=== PATIENT | female | born 1940 | race Caucasian/White ===

== ENCOUNTER → 2016-09-01 | Outpatient (REF) | payer MEDICARE, MEDICAID ==
[~2016-09-01] MED LIST: ALDA25TA2 PO; ALDA50TA2 PO; AMLO10TA2 PO; ARTIFICIAL TEARS OU; ASPI81TA85 PO; DOCU10CA PO; LISI40TAB PO; MESA4KIT PR; MESA50SU PR; MOM30SS PO; NORV5TAB PO; PAME50CA PO; PRAV40TA2 PO; REFROIN OU; ROBISYP PO; SYST0.4D2 OU; TYLE325T5 PO
[2016-09-01 12:45] LABS: POTASSIUM SERUM 3.8 MEQ/L (3.5-5.1)
== END ==
DX: I10 Essential (primary) hypertension (principal)

== ENCOUNTER → 2016-11-09 | Outpatient (REF) | payer MEDICARE, MEDICAID ==
[2016-11-09 09:51] LABS: CALCIUM LEVEL 9.9 MG/DL (8.8-10.2); CREATININE FOR GFR 1.02 MG/DL (0.55-1.02); GLOMERULAR FILTRATION RATE 56.4 (>39); PHOSPHORUS LEVEL 3.2 MG/DL (2.5-4.9); POTASSIUM SERUM 3.6 MEQ/L (3.5-5.1)
== END ==
DX: E83.52 Hypercalcemia (principal)

== ENCOUNTER → 2017-02-01 | Outpatient (REF) | payer MEDICARE, MEDICAID ==
[2017-02-01 10:45] LABS: MEAN CORPUSCULAR HEMOGLOBIN 33.9 pg (27.0-33.0); MEAN CORPUSCULAR VOLUME 99.8 fl (80.0-96.0); RED CELL DISTRIBUTION WIDTH 13.2 % (11.5-14.5); WHITE BLOOD COUNT 5.4 K/mm3 (4.0-10.0)
[2017-02-01 11:12] LABS: ALBUMIN 3.9 GM/DL (3.2-5.2); ALBUMIN/GLOBULIN RATIO 1.03 (1.00-1.93); ALKALINE PHOSPHATASE 48 U/L (45-117); ALT/SGPT 16 U/L (12-78); AST/SGOT 11 U/L (15-37); BILIRUBIN,DIRECT < 0.1 MG/DL (0.0-0.2); BILIRUBIN,TOTAL 0.4 MG/DL (0.2-1.0); TOTAL PROTEIN 7.7 GM/DL (6.4-8.2)
== END ==
DX: E78.5 Hyperlipidemia, unspecified (principal)

== ENCOUNTER → 2017-04-04 | Outpatient (REF) | payer MEDICARE, MEDICAID ==
--- NOTE | 2017-04-04 16:54 | REP ---
Right ankle series: Two views: History: Right ankle pain. Findings: Two views right ankle demonstrate diffuse soft tissue swelling distal calf and ankle level. Ankle mortise is intact on these views. There is some diffuse osteopenia. Impression: No fracture noted. Signed by Saroj Traore MD 04/04/2017 05:01 P
== END ==
DX: M25.571 Pain in right ankle and joints of right foot (principal)

== ENCOUNTER → 2017-07-28 | Outpatient (CLI) | payer MEDICARE, MEDICAID ==
--- NOTE | 2017-07-28 15:23 | REP ---
BILATERAL DIGITAL SCREENING MAMMOGRAM: 07/28/2017 CLINICAL HISTORY: Screening examination. She has no current complaints. On a prior history form in 2010, she stated her mother had breast cancer in her 40s although her current history form does not include that. COMPARISON: 01/10/2014, 04/10/2012, 03/29/2011. FINDINGS: Standard two-view mammography is performed. The breast parenchyma shows scattered fibroglandular elements in a pattern distribution similar to the previous studies. However, there is now some interval change in that there are multiple coarse benign calcifications having formed since that previous study of 2013 when there were only a few. In addition, slight skin thickening is noted anteriorly. I do not see discrete mass, architectural distortion, suspicious clusters of microcalcification or evidence of any secondary signs of malignancy elsewhere. The right breast remains unremarkable. There is a GRE TUTOR shunt tubing seen coursing along the medial aspect of the chest wall and breast with calcification along its course as before. I see no axillary mass or adenopathy. IMPRESSION: BI-RADS/ACR category 0 mammogram, incomplete. Additional imaging and/or prior mammograms for comparison. I would have the patient return for spot magnified views of the retroareolar zone and axillary ultrasound in a patient with interval left breast mild skin thickening. No discrete mass identified. The possibility of axillary adenopathy as a cause for skin edema should be considered and evaluated with ultrasound and evaluation of the parenchyma in the retroareolar zone is warranted as well. This mammogram was interpreted with the aid of an FDA-approved computer-aided detection system. The patient states that she/he has not had a clinical breast exam in over a year. Patient letter M0. Signed by Tucker Jean Baptiste MD 07/28/2017 08:42 P
== END ==
LOC: M RAD 10:48
PROVIDERS: ATTEND Nurse Practitioner Adult Health
DX: Z12.31 Encounter for screening mammogram for malignant neoplasm of breast (principal); Z80.3 Family history of malignant neoplasm of breast; R92.1 Mammographic calcification found on diagnostic imaging of breast

== ENCOUNTER → 2017-08-05 | Outpatient (CLI) | payer MEDICARE, MEDICAID ==
--- NOTE | 2017-08-05 15:17 | REP ---
DIAGNOSTIC MAMMOGRAM LEFT BREAST AND LEFT BREAST ULTRASOUND: Diagnostic mammogram left breast performed with multiple compression views obtained. Comparison made with prior study of 07/28/2017 as well as other prior exams. The previously noted skin thickening around the nipple is not seen on today's exam. Retroareolar region demonstrates mild ill-defined fibroglandular tissue which appears benign, as well as scattered benign calcifications. No nodule is seen and there is no architectural distortion. Real-time sonographic evaluation of the left retroareolar region is performed. There are mildly dilated ducts in the retroareolar region without a cystic or solid mass. Real-time sonographic evaluation of the axillary region also demonstrates no suspicious cystic or solid mass and no evidence of significant adenopathy. IMPRESSION: ACR 2 benign. No persistent skin thickening in the periareolar region of the left breast. No suspicious mammographic or sonographic abnormality in the retroareolar region and no evidence of mass or adenopathy in the left axilla. The findings are ACR 2 benign. Recommend followup mammogram in one year. BI-RADS/ACR category 2 mammogram. Benign finding(s). Routine annual screening mammography (for women over age 40). This mammogram was interpreted with the aid of an FDA-approved computer-aided detection system. The patient letter being requested is M1 Signed by Gary Pitts MD 08/05/2017 05:01 P
== END ==
LOC: M RAD 10:38
PROVIDERS: ATTEND Nurse Practitioner Adult Health
DX: R92.8 Other abnormal and inconclusive findings on diagnostic imaging of breast (principal)
CPT/HCPCS: 76642; G0206

== ENCOUNTER → 2017-09-15 | Outpatient (REF) | payer MEDICARE, MEDICAID ==
[2017-09-15 14:05] LABS: HEMATOCRIT 44.3 % (36.0-47.0); HEMOGLOBIN 14.5 g/dl (12.0-16.0); MEAN CORPUSCULAR HEMOGLOBIN 31.4 pg (27.0-33.0); MEAN CORPUSCULAR HGB CONC 32.7 g/dl (32.0-36.5); MEAN CORPUSCULAR VOLUME 95.9 fl (80.0-96.0); PLATELET COUNT, AUTOMATED 185 10^3/uL (150-450); RED BLOOD COUNT 4.62 10^6/uL (4.00-5.40); RED CELL DISTRIBUTION WIDTH 13.9 % (11.5-14.5); WHITE BLOOD COUNT 6.3 10^3/uL (4.0-10.0)
[2017-09-15 14:37] LABS: INFLUENZA A AMPLIFICATION NEGATIVE (NEGATIVE); INFLUENZA B AMPLIFICATION NEGATIVE (NEGATIVE)
== END ==
DX: R50.9 Fever, unspecified (principal); R05 Cough
CPT/HCPCS: 85027

== ENCOUNTER → 2018-01-31 | Outpatient (REF) | payer MEDICARE, MEDICAID ==
[2018-01-31 09:44] LABS: HEMATOCRIT 48.1 % (36.0-47.0); MEAN CORPUSCULAR HEMOGLOBIN 29.6 pg (27.0-33.0); MEAN CORPUSCULAR HGB CONC 31.2 g/dl (32.0-36.5); MEAN CORPUSCULAR VOLUME 94.9 fl (80.0-96.0); PLATELET COUNT, AUTOMATED 191 10^3/uL (150-450); RED BLOOD COUNT 5.07 10^6/uL (4.00-5.40); RED CELL DISTRIBUTION WIDTH 14.4 % (11.5-14.5); WHITE BLOOD COUNT 5.4 10^3/uL (4.0-10.0)
[2018-01-31 10:11] LABS: ALBUMIN 4.2 GM/DL (3.2-5.2); ALBUMIN/GLOBULIN RATIO 0.98 (1.00-1.93); ALKALINE PHOSPHATASE 68 U/L (45-117); ALT/SGPT 21 U/L (12-78); AST/SGOT 14 U/L (7-37); BILIRUBIN,DIRECT 0.1 MG/DL (0.0-0.2); BILIRUBIN,TOTAL 0.4 MG/DL (0.2-1.0); TOTAL PROTEIN 8.5 GM/DL (6.4-8.2)
[2018-01-31 10:15] LABS: TOTAL 25(OH) VITAMIN D 52.4 NG/ML (30.0-100.0)
== END ==
DX: E78.5 Hyperlipidemia, unspecified (principal)
CPT/HCPCS: 80076

== ENCOUNTER → 2018-05-15 | Outpatient (REF) | payer MEDICARE, MEDICAID ==
[2018-05-15 12:40] LABS: HEMOGLOBIN 14.2 g/dl (12.0-15.5); MEAN CORPUSCULAR HEMOGLOBIN 28.1 pg (27.0-33.0); MEAN CORPUSCULAR HGB CONC 30.2 g/dl (32.0-36.5); MEAN CORPUSCULAR VOLUME 92.9 fl (80.0-96.0); PLATELET COUNT, AUTOMATED 202 10^3/uL (150-450); RED BLOOD COUNT 5.06 10^6/uL (4.00-5.40); RED CELL DISTRIBUTION WIDTH 14.6 % (11.5-14.5); WHITE BLOOD COUNT 5.1 10^3/uL (4.0-10.0)
[2018-05-15 12:55] LABS: ANION GAP 8 MEQ/L (8-16); BLOOD UREA NITROGEN 13 MG/DL (7-18); CALCIUM LEVEL 9.2 MG/DL (8.8-10.2); CARBON DIOXIDE LEVEL 35 MEQ/L (21-32); CHLORIDE LEVEL 100 MEQ/L (98-107); CREATININE FOR GFR 0.74 MG/DL (0.55-1.30); GLOMERULAR FILTRATION RATE > 60.0 (>39); GLUCOSE, FASTING 86 MG/DL (70-100); POTASSIUM SERUM 3.6 MEQ/L (3.5-5.1); SODIUM LEVEL 143 MEQ/L (136-145)
== END ==
DX: N18.4 Chronic kidney disease, stage 4 (severe) (principal)
CPT/HCPCS: 80048

== ENCOUNTER → 2018-08-29 | Outpatient (REF) | payer MEDICARE, MEDICAID ==
[~2018-08-29] MED LIST changes: -AMLO10TA2 PO; +AMLO10TA5 PO
[2018-08-29 10:33] LABS: ALBUMIN 3.6 GM/DL (3.2-5.2); ALT/SGPT 18 U/L (12-78); BILIRUBIN,DIRECT 0.1 MG/DL (0.0-0.2); BILIRUBIN,TOTAL 0.3 MG/DL (0.2-1.0); BLOOD UREA NITROGEN 10 MG/DL (7-18); CARBON DIOXIDE LEVEL 33 MEQ/L (21-32); CHLORIDE LEVEL 100 MEQ/L (98-107); CREATININE FOR GFR 0.78 MG/DL (0.55-1.30); GLOMERULAR FILTRATION RATE > 60.0 (>39); GLUCOSE, FASTING 151 MG/DL (70-100); POTASSIUM SERUM 3.9 MEQ/L (3.5-5.1); SODIUM LEVEL 141 MEQ/L (136-145); TOTAL 25(OH) VITAMIN D 67.2 NG/ML (30.0-100.0); TOTAL PROTEIN 7.3 GM/DL (6.4-8.2)
== END ==
DX: I10 Essential (primary) hypertension (principal)

== ENCOUNTER → 2019-01-30 | Outpatient (REF) | payer MEDICARE, MEDICAID ==
[~2019-01-30] MED LIST changes: +LISI40TA52 PO; -LISI40TAB PO
[2019-01-30 09:44] LABS: HEMATOCRIT 47.1 % (36.0-47.0); HEMOGLOBIN 14.4 g/dl (12.0-15.5); MEAN CORPUSCULAR HEMOGLOBIN 27.6 pg (27.0-33.0); MEAN CORPUSCULAR HGB CONC 30.6 g/dl (32.0-36.5); MEAN CORPUSCULAR VOLUME 90.4 fl (80.0-96.0); PLATELET COUNT, AUTOMATED 166 10^3/uL (150-450); RED BLOOD COUNT 5.21 10^6/uL (4.00-5.40); WHITE BLOOD COUNT 6.7 10^3/uL (4.0-10.0)
== END ==
DX: E78.00 Pure hypercholesterolemia, unspecified (principal); Z79.899 Other long term (current) drug therapy

== ENCOUNTER → 2019-04-04 | Outpatient (REF) | payer MEDICARE, MEDICAID ==
--- NOTE | 2019-04-04 15:09 | REP ---
REASON FOR EXAM: Pain with weightbearing, no trauma. No priors. The bones are demineralized. The mortise is symmetric. There is no evidence of an acute fracture. Electronically Signed by Dandre Castañeda DO 04/05/2019 03:19 P
--- NOTE | 2019-04-04 15:14 | REP ---
REASON: Pain with weightbearing. PRIORS: None. The bones are demineralized. Minimal lucency is seen in the os calcis. This was not appreciated on the four view ankle series obtained at the same time. I suspect it represents artifact since the ankle series also images the os calcis. There is no definite acute fracture. IMPRESSION: The bones are demineralized. Electronically Signed by Dandre Castañeda DO 04/05/2019 03:19 P
== END ==
PROVIDERS: ATTEND Nurse Practitioner Adult Health
DX: M85.871 Other specified disorders of bone density and structure, right ankle and foot (principal); M25.571 Pain in right ankle and joints of right foot; M79.671 Pain in right foot

== ENCOUNTER 2019-08-26 07:33 | Observation (INO) | payer MEDICARE, MEDICAID ==
[~2019-08-26] VITALS: Ht 154.9 cm; Wt 68.9 kg
[2019-08-26 08:43] LABS: HEMATOCRIT 44.1 % (36.0-47.0); HEMOGLOBIN 12.8 g/dl (12.0-15.5); MEAN CORPUSCULAR HEMOGLOBIN 25.7 pg (27.0-33.0); MEAN CORPUSCULAR VOLUME 88.4 fl (80.0-96.0); PLATELET COUNT, AUTOMATED 237 10^3/uL (150-450); RED BLOOD COUNT 4.99 10^6/uL (4.00-5.40); WHITE BLOOD COUNT 7.3 10^3/uL (4.0-10.0)
--- NOTE | 2019-08-26 08:48 | REP ---
Portable chest x-ray: Single view. History: Hypoxia. Comparison chest x-ray: September 15, 2017. Findings: There is a moderate to severe thoracolumbar scoliosis. Right hemidiaphragm is quite elevated unchanged from the prior study. Heart size is difficult to gauge because of the scoliosis but appears unchanged. No acute infiltrate is appreciated. There is dystrophic calcification in a linear pattern superimposed on the left medial chest consistent with mineral deposition in the previously placed ventriculoperitoneal shunt catheter. This is unchanged. 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 Impression: Scoliosis and markedly elevated right hemidiaphragm. No acute infiltrate. Old BUNDLE SHAKER shunt related calcification. Electronically Signed by Saroj Traore MD 08/26/2019 08:39 A
[2019-08-26] MEDS ORDERED: MIRALAX *UNIT DOSE* 17GM PACKET PO SCH (09:00)
[2019-08-26 09:27] LABS: INR 1.1; PROTHROMBIN TIME 13.9 SECONDS (11.8-14.0)
[2019-08-26 09:28] LABS: PARTIAL THROMBOPLASTIN TIME 32.7 SECONDS (25.0-38.4)
[2019-08-26 09:42] LABS: BLOOD UREA NITROGEN 14 MG/DL (7-18); CALCIUM LEVEL 9.1 MG/DL (8.8-10.2); CARBON DIOXIDE LEVEL 33 MEQ/L (21-32); CHLORIDE LEVEL 104 MEQ/L (98-107); CREATININE FOR GFR 0.82 MG/DL (0.55-1.30); GLOMERULAR FILTRATION RATE > 60.0 (>39); GLUCOSE, FASTING 120 MG/DL (70-100); POTASSIUM SERUM 4.1 MEQ/L (3.5-5.1); SODIUM LEVEL 143 MEQ/L (136-145)
[2019-08-26] MEDS ORDERED: COLA100C5 PO (10:22)
[2019-08-26] MEDS ORDERED: CALCCAP4 PO (10:22)
[2019-08-26] MEDS ORDERED: SORB70SO36 PO (10:22)
[2019-08-26] MEDS ORDERED: SENN-23 PO (10:22)
[2019-08-26] MEDS ORDERED: NEXI40CA PO (10:22)
[2019-08-26] MEDS ORDERED: MIRA3350 PO (10:22)
[2019-08-26] MEDS ORDERED: VITA30004 PO (10:22)
[2019-08-26] MEDS ORDERED: ASPI81TA26 PO (10:22)
[2019-08-26] MEDS ORDERED: MILKSUS3 PO (10:22)
[2019-08-26] MEDS ORDERED: ATOR40TA75 PO (10:22)
[2019-08-26] MEDS ORDERED: TUMS500C PO (10:26)
[2019-08-26] MEDS ORDERED: ENEMENE PR (10:26)
[2019-08-26] MEDS ORDERED: BISA10SU27 PR (10:26)
[2019-08-26] MEDS ORDERED: ACET1TAB55 PO (10:26)
[2019-08-26] MEDS ORDERED: [UNRECOGNIZED DRUG - CODE] OD (10:26)
[2019-08-26] MEDS ORDERED: AMPICILLIN SOD/SULBACTAM SOD 3 GM in D5W MINI-BAG PLUS 100 ML IV ONE (10:45)
[2019-08-26] MEDS ORDERED: FLEET ENEMA PR PRN (11:30)
[2019-08-26] MEDS ORDERED: BISACODYL 10 MG SUPP PR PRN (11:30)
[2019-08-26] MEDS ORDERED: CALCIUM CARBONATE 500 MG CHEW U/D PO PRN (11:30)
[2019-08-26] MEDS ORDERED: ACETAMINOPHEN TAB 650MG DOSE (2X325MG) PO PRN (11:30)
[2019-08-26 13:32] VITALS: BP 106/75
--- NOTE | 2019-08-26 13:38 | HPEPDOC ---
General Date of Admission Aug 26, 2019 at 07:34 Date of Service: Aug 26, 2019 Chief Complaint The patient is a 78-year-old female Presented to the emergency room after experiencing significant nasal bleeding History of Present Illness Patient is a 78-year-old female with a PMHx of Ischemic and hemorrhagic CVA (First initially in 1992, second in 2010), HTN, DLP, Ulcerative proctitis, Chronic constipation, Behavioral issues / Depression. Patient was transferred from [facility] because of nasal epistaxis that was significant in nature. Upon arrival to emergency room, patient had nasal packing that was placed and pressure was increased. Patient was evaluated by ENT provider who had performed visualization of the upper pharynx. No further bleeding was noted. Hospitalist service was subsequently contacted for evaluation and treatment. I discussed with the patients past medical history and current condition. They are having a difficult time to express their history, given their prior stroke. Majority of the information has been collected from the medical record. Upon evaluation in the emergency room, patient was found to be hypoxic. I have described to the patient that she will require the use of a facemask for supplemental oxygen. However, she had a strongly refused this. Patient is aware of the risks and benefits of such a decision including but not limited to . I have also explained to the patient that we will repeat her hemoglobin this afternoon to determine if she requires any transfusions. Again, she has expressly refused any further interventions. Patient was again advised of risks and benefits; again she has strongly refused transfusions. Basic review of systems indicates that she does not express any headache, nausea, vomiting, chest pain, shortness of breath, palpitations, abdominal pain, constipation, diarrhea, or urinary discomfort. Patient has not experience any fevers or chills within the last 2 weeks. Patients most form has indicated comfort measures, DO NOT RESUSCITATE and DO NOT INTUBATE. Home Medications Scheduled Amlodipine Besylate (Norvasc) 5 Mg Tab, 5 MG PO DAILY, (Reported) Aspirin (Aspirin EC) 81 Mg Tablet.dr, 81 MG PO DAILY, (Reported) Atorvastatin Calcium (Atorvastatin Calcium) 40 Mg Tablet, 40 MG PO QHS, (Reported) Calcium Carbonate/Vitamin D3 (Calcium 600 + Vit D 400 Softgl) 1 Each Capsule, 1 CAP PO DAILY, (Reported) Cholecalciferol (Vitamin D3) (Vitamin D3) 3,000 Unit Tablet, 6,000 UNIT PO DAILY, (Reported) Docusate Sodium (Colace) 100 Mg Capsule, 200 MG PO BID, (Reported) Esomeprazole Magnesium (Nexium) 40 Mg Capsule.dr, 40 MG PO QAM, (Reported) Magnesium Hydroxide (Milk of Magnesia) 400 Mg/5 Ml Oral.susp, 2,400 MG PO QHS, (Reported) Mineral Oil/Petrolatum,White (Soothe Night Time Lub Eye Oint) 3.5 Gm Oint...g., 1 APLCT OD QHS, (Reported) APPLY 1/2 INCH RIBBON TO RIGHT EYE QHS Nortriptyline HCl (Pamelor) 50 Mg Cap, 100 MG PO QHS, (Reported) Polyethylene Glycol 3350 (Miralax) 119 Gm Powder, 17 GM PO Q2D, (Reported) dilute in 8 ounces of water or juice Propylene Glycol/Peg 400 (Systane Gel Eye Drops) 1 Rah Rah, 1 DROP OU BID, (Reported) Sennosides/Docusate Sodium (Senna-S Tablet) 1 Each Tablet, 1 TAB PO BID, (Reported) Sorbitol Solution (Sorbitol 70%) 1 Ml Solution, 30 ML PO Q2D, (Reported) Spironolactone (Aldactone) 25 Mg Tab, 25 MG PO DAILY, (Reported) Scheduled PRN Acetaminophen (Acetaminophen) 325 Mg Tablet, 650 MG PO Q4H PRN for PAIN / FEVER, (Reported) Bisacodyl (Bisacodyl) 10 Mg Supp.rect, 10 MG [place] DAILY PRN for CONSTIPATION, (Reported) Calcium Carbonate (Tums) 200 Mg Tab.chew, 500 MG PO Q4H PRN for ACID REFLUX, (Reported) Sodium Phosphate,[place]-Dibasic (Enema) 133 Ml Enema, 1 RAUL [place] DAILY PRN for CONSTIPATION, (Reported) Allergies Coded Allergies: Influenza Virus Vaccines (Verified Allergy, Unknown, 08/26/19) Sulfa (Sulfonamide Antibiotics) (Verified Allergy, Unknown, UNKNOWN, 08/26/19) Past Medical History Medical History Ischemic and hemorrhagic CVA (First initially in 1992, second in 2010), HTN, DLP, Ulcerative proctitis, Chronic constipation, Behavioral issues / Depression Surgical History Left distal clavicular fracture 2010 Colonoscopy 1998 Hysterectomy Family History - Reviewed and is currently noncontributory to the current hospitalization Social History - Denies the use of alcohol, tobacco or illicit drugs - Patient is a resident of [facility] Review of Systems Other systems 10 point review of systems complete, all negative otherwise stated in HPI Vital Signs - Vitals: BP 128/82, HR 101, RR 18, Sat 91%RA, Temp 97.2F - General: Lying in bed, No acute distress, Expressing self but difficult to understand, several areas of dry blood can be seen on her gown, AAOx3 - HEENT: PERRLA, patient has a left nasal packing in place, dry blood can be seen around the nares as well as her mouth - CVS: Tachycardia, +S1S2 - Lungs: Fair air entry bilaterally, No appreciable wheezing / rales / rhonchi - Abdomen: Soft, Non-distended, Non-tender - Extremities: No lower extremity edema, No calf tenderness - Neuro: No focal motor or sensory deficit - Skin: No visible rashes Laboratory Data Labs 24H Laboratory Tests 2 08/26/19 08:32: Nucleated Red Blood Cells % (auto) 0.0 08/26/19 08:59: Prothrombin Time 13.9, Prothromb Time International Ratio 1.10, Activated Partial Thromboplast Time 32.7, Anion Gap 6L, Glomerular Filtration Rate > 60.0, Calcium Level 9.1 CBC/BMP Laboratory Tests 08/26/19 08:32 08/26/19 08:59 Plan / VTE VTE Prophylaxis Ordered?: Yes Plan Plan Epistaxis - Patient began to experience epistaxis while at the [facility] that wa failed to be controlled - Emergency room provider has inserted nasal packing - Patient was seen and evaluated by ENT in the emergency room; she received direct visualization of her nasopharynx; no further episodes of bleeding were seen - Will repeat H&H this afternoon - Discussed with the patient need for transfusion; however, they have refused it at this time will re-discuss after subsequent H&H results - s/p Unasyn; will c/w Augmentin PO for Sinusitis prophylaxis - ASA on hold - Discussed case with Dr. Barfield; advised that patient should have outpatient follow-up with ENT within 3 days and to continue with prophylactic antibiotics for sinusitis - Patient will remain on observation status on the medical surgical floor for 24 hours Acute hypoxic respiratory failure - likely 2/2 aspiration - Currently, patient reports that her breathing is doing fine. She denies any shortness of breath or cough - CXR 08/26: Scoliosis and markedly elevated right hemidiaphragm. No acute infiltrate. Old POULTRY DEBEAKER shunt related calcification. - Patient has been advised to continue with supplemental oxygen; however, she has adamantly refused - Will continue to monitor Ischemic and hemorrhagic CVA - First initially in 1992, second in 2010 - ASA on hold - c/w Atorvastatin HTN - BP remains well controlled - Will hold amlodipine and spironolactone at this time DLP - c/w Atorvastatin Ulcerative proctitis / Chronic constipation - c/w Bowel regimen as ordered Behavioral issues / Depression - c/w Nortriptyline GERD - c/w Protonix DVT prophylaxis - Will start TEDs/Sequentials as tolerated for comfort RAZIA BARTLETT MD Aug 26, 2019 13:38
[2019-08-26] MEDS: PANTOPRAZOLE 40MG TAB (PROTONIX) PO SCH (14:54)
[2019-08-26 15:20] LABS: HEMATOCRIT 38.2 % (36.0-47.0); HEMOGLOBIN 11.3 g/dl (12.0-15.5)
[2019-08-26] MEDS: SENOKOT S TAB PO SCH (20:19)
[2019-08-26] MEDS: MOM 30ML SUSPENSION UDC PO SCH ×2 (20:20→21:00)
[2019-08-26] MEDS: DOCUSATE SODIUM 100 MG CAP PO SCH (20:20)
[2019-08-26] MEDS: AUGMENTIN 875 MG TAB PO SCH (20:20)
[2019-08-26] MEDS ORDERED: NORTRIPTYLINE 25 MG CAP PO SCH (21:00)
[2019-08-26] MEDS ORDERED: ATORVASTATIN 20 MG TAB PO SCH (21:00)
[2019-08-26 21:37] VITALS: BP 141/81
[2019-08-27 06:39] VITALS: BP 146/83
[2019-08-27 08:15] LABS: BASO % 0.5 % (0.0-1.0); EOS # 0.1 10^3/uL (0.0-0.5); EOS % 0.9 % (0.0-3.0); HEMATOCRIT 34.3 % (36.0-47.0); HEMOGLOBIN 10.6 g/dl (12.0-15.5); LYMPH # 1.3 10^3/uL (1.5-5.0); LYMPH % 18.9 % (24.0-44.0); MEAN CORPUSCULAR HGB CONC 30.9 g/dl (32.0-36.5); MEAN CORPUSCULAR VOLUME 87.3 fl (80.0-96.0); MONO # 0.4 10^3/uL (0.0-0.8); MONO % 5.9 % (0.0-5.0); NEUTROPHILS # 4.9 10^3/uL (1.5-8.5); NEUTROPHILS % 73.3 % (36.0-66.0); PLATELET COUNT, AUTOMATED 193 10^3/uL (150-450); RED BLOOD COUNT 3.93 10^6/uL (4.00-5.40); WHITE BLOOD COUNT 6.7 10^3/uL (4.0-10.0)
[2019-08-27 08:48] LABS: BLOOD UREA NITROGEN 15 MG/DL (7-18); CALCIUM LEVEL 8.8 MG/DL (8.8-10.2); CARBON DIOXIDE LEVEL 31 MEQ/L (21-32); CHLORIDE LEVEL 106 MEQ/L (98-107); CREATININE FOR GFR 0.67 MG/DL (0.55-1.30); GLOMERULAR FILTRATION RATE > 60.0 (>39); GLUCOSE, FASTING 101 MG/DL (70-100); POTASSIUM SERUM 3.2 MEQ/L (3.5-5.1); SODIUM LEVEL 144 MEQ/L (136-145)
[2019-08-27] MEDS ORDERED: AMOX875T2 PO (08:56)
[2019-08-27] MEDS ORDERED: SORBITOL 70% 30ML UNIT DOSE CUP PO SCH (09:00)
[2019-08-27] MEDS ORDERED: POTASSIUM CHLORIDE 10% LIQ 20 MEQ/15 ML UDC PO ONE (09:00)
[2019-08-27] MEDS ORDERED: VITAMIN D 1,000 INTERNATIONAL UNITS TABLET PO SCH (09:00)
[2019-08-27] MEDS: AUGMENTIN 875 MG TAB PO SCH (09:13)
[2019-08-27] MEDS: PANTOPRAZOLE 40MG TAB (PROTONIX) PO SCH (09:14)
[2019-08-27] MEDS: SENOKOT S TAB PO SCH (09:14)
[2019-08-27] MEDS: DOCUSATE SODIUM 100 MG CAP PO SCH (09:14)
--- NOTE | 2019-08-27 10:52 | DS.PDOC ---
Discharge Summary General Date of Admission Aug 26, 2019 at 07:34 Date of Discharge August 27, 2019 Attending Physician: ULYSSES BARTLETT MD Discharge Summary PROCEDURES PERFORMED DURING STAY: [None]. ADMITTING DIAGNOSES: 1. Epistaxis DISCHARGE DIAGNOSES: 1. Epistaxis 2. Acute hypoxic respiratory failure COMPLICATIONS/CHIEF COMPLAINT: Epistaxis Hypoxia. HISTORY OF PRESENT ILLNESS: Patient is a 78-year-old female with a PMHx of Ischemic and hemorrhagic CVA (First initially in 1992, second in 2010), HTN, DLP, Ulcerative proctitis, Chronic constipation, Behavioral issues / Depression. Patient was transferred from [facility] because of nasal epistaxis that was significant in nature. Upon arrival to emergency room, patient had nasal packing that was placed and pressure was increased. Patient was evaluated by ENT provider who had performed visualization of the upper pharynx. No further bleeding was noted. Hospitalist service was subsequently contacted for evaluation and treatment. I discussed with the patients past medical history and current condition. They are having a difficult time to express their history, given their prior stroke. Majority of the information has been collected from the medical record. Upon evaluation in the emergency room, patient was found to be hypoxic. I have described to the patient that she will require the use of a facemask for supplemental oxygen. However, she had a strongly refused this. Patient is aware of the risks and benefits of such a decision including but not limited to . I have also explained to the patient that we will repeat her hemoglobin this afternoon to determine if she requires any transfusions. Again, she has expressly refused any further interventions. Patient was again advised of risks and benefits; again she has strongly refused transfusions. Basic review of systems indicates that she does not express any headache, nausea, vomiting, chest pain, shortness of breath, palpitations, abdominal pain, constipation, diarrhea, or urinary discomfort. Patient has not experience any fevers or chills within the last 2 weeks. Patients most form has indicated comfort measures, DO NOT RESUSCITATE and DO NOT INTUBATE. HOSPITAL COURSE: Patient was admitted to medical/surgical floor after nasal packing was placed in ED. She was seen by ENT in the ED. No further episodes of bleeding. Once she was transferred to the floor. She was started on Augmentin by mouth for sinusitis prophylaxis. Patient refused transfusion or oxygen supplementation. She understood the risks of not getting transfusion should her hemoglobin drop from her epistaxis. Her aspirin was held. . She remained vitally stable and labs on hospital day 2 were within normal limits. . She was discharged back to [facility] with planned follow-up with ENT in 3 days. In the meantime, continue Augmentin for a total of 7 days and hold aspirin until she can be seen by ENT. DISCHARGE MEDICATIONS: Please see below. ALLERGIES: Please see below. PHYSICAL EXAMINATION ON DISCHARGE: VITAL SIGNS: Please see below. GENERAL APPEARANCE: Laying in bed, appears stated age, no acute distress, calm, cooperative HEENT: EOMI, PERRLA, neck is supple with no thyromegaly or lymphadenopathy, nasal packing in place with catheter. There is dried blood around the nares RESPIRATORY: Lungs are clear to auscultation bilaterally with no adventitious breath sounds appreciated CARDIOVASCULAR: no JVD, RRR,no murmurs/rubs/gallops ABDOMEN: Soft, nontender to palpation in all four quadrants, no masses/organomegaly EXTREMITIES: no clubbing, cyanosis or edema noted NEUROLOGICAL: Patient is dysarthric at baseline, did not perform full neurologic exam PSYCHIATRIC: normal mood/affect Skin: No rashes or ulcers. LN: No significant cervical or inguinal lymphadenopathy LABORATORY DATA: Please see below. IMAGING: CXR (08/26/2019): Findings: There is a moderate to severe thoracolumbar scoliosis. Right hemidiaphragm is quite elevated unchanged from the prior study. Heart size is difficult to gauge because of the scoliosis but appears unchanged. No acute infiltrate is appreciated. There is dystrophic calcification in a linear pattern superimposed on the left medial chest consistent with mineral deposition in the previously placed ventriculoperitoneal shunt catheter. This is unchanged. 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 Impression: Scoliosis and markedly elevated right hemidiaphragm. No acute infiltrate. Old DISPENSING AUDIOLOGIST shunt related calcification. PROGNOSIS: fair ACTIVITY: [As tolerated]. DIET: as tolerated DISCHARGE PLAN: transfer back to [facility] DISPOSITION: [facility] DISCHARGE INSTRUCTIONS: 1. Follow up with ENT in 3 days 2. Continue Augmentin course until completion 3. Hold ASA until you are seen by ENT ITEMS TO FOLLOWUP ON ON OUTPATIENT: 1. ENT follow up DISCHARGE CONDITION: [Stable]. TIME SPENT ON DISCHARGE: Greater than 30 minutes. Vital Signs/I&Os Vital Signs Date Time Temp Pulse Resp B/P (MAP) Pulse Ox O2 Delivery O2 Flow Rate FiO2 08/27/19 06:39 97.1 94 18 146/83 (104) 96 Nasal Cannula 2.0 I&O- Last 24 Hours up to 6 AM 08/27/19 06:00 Intake Total 1300 ml Output Total 0 ml Balance 1300 ml Laboratory Data Labs 24H Laboratory Tests 2 08/27/19 07:55: Immature Granulocyte % (Auto) 0.5, Neutrophils (%) (Auto) 73.3H, Lymphocytes (%) (Auto) 18.9L, Monocytes (%) (Auto) 5.9H, Eosinophils (%) (Auto) 0.9, Basophils (%) (Auto) 0.5, Neutrophils # (Auto) 4.9, Lymphocytes # (Auto) 1.3L, Monocytes # (Auto) 0.4, Eosinophils # (Auto) 0.1, Basophils # (Auto) 0.0, Nucleated Red Blood Cells % (auto) 0.0, Anion Gap 7L, Glomerular Filtration Rate > 60.0, Calcium Level 8.8 CBC/BMP Laboratory Tests 08/26/19 15:03 08/27/19 07:55 Discharge Medications Scheduled Amlodipine Besylate (Norvasc) 5 Mg Tab, 5 MG PO DAILY, (Reported) Amoxicillin/Potassium Clav (Amox-Clav 875-125 mg Tablet) 1 Each Tablet, 875 MG PO BID Atorvastatin Calcium (Atorvastatin Calcium) 40 Mg Tablet, 40 MG PO QHS, (Reported) Calcium Carbonate/Vitamin D3 (Calcium 600 + Vit D 400 Softgl) 1 Each Capsule, 1 CAP PO DAILY, (Reported) Cholecalciferol (Vitamin D3) (Vitamin D3) 3,000 Unit Tablet, 6,000 UNIT PO DAILY, (Reported) Docusate Sodium (Colace) 100 Mg Capsule, 200 MG PO BID, (Reported) Esomeprazole Magnesium (Nexium) 40 Mg Capsule.dr, 40 MG PO QAM, (Reported) Magnesium Hydroxide (Milk of Magnesia) 400 Mg/5 Ml Oral.susp, 2,400 MG PO QHS, (Reported) Mineral Oil/Petrolatum,White (Soothe Night Time Lub Eye Oint) 3.5 Gm Oint...g., 1 APLCT OD QHS, (Reported) APPLY 1/2 INCH RIBBON TO RIGHT EYE QHS Nortriptyline HCl (Pamelor) 50 Mg Cap, 100 MG PO QHS, (Reported) Polyethylene Glycol 3350 (Miralax) 119 Gm Powder, 17 GM PO Q2D, (Reported) dilute in 8 ounces of water or juice Propylene Glycol/Peg 400 (Systane Gel Eye Drops) 1 Rah Rah, 1 DROP OU BID, (Reported) Sennosides/Docusate Sodium (Senna-S Tablet) 1 Each Tablet, 1 TAB PO BID, (Reported) Sorbitol Solution (Sorbitol 70%) 1 Ml Solution, 30 ML PO Q2D, (Reported) Spironolactone (Aldactone) 25 Mg Tab, 25 MG PO DAILY, (Reported) Scheduled PRN Acetaminophen (Acetaminophen) 325 Mg Tablet, 650 MG PO Q4H PRN for PAIN / FEVER, (Reported) Bisacodyl (Bisacodyl) 10 Mg Supp.rect, 10 MG [place] DAILY PRN for CONSTIPATION, (Reported) Calcium Carbonate (Tums) 200 Mg Tab.chew, 500 MG PO Q4H PRN for ACID REFLUX, (Reported) Sodium Phosphate,[place]-Dibasic (Enema) 133 Ml Enema, 1 RAUL [place] DAILY PRN for CONSTIPATION, (Reported) Allergies Coded Allergies: Influenza Virus Vaccines (Verified Allergy, Unknown, 08/26/19) Sulfa (Sulfonamide Antibiotics) (Verified Allergy, Unknown, UNKNOWN, 08/26/19) GME ATTESTATION GME ATTESTATION My faculty preceptor for this patient encounter was physically present during the encounter and was fully available. All aspects of the patient interview, examination, medical decision making process, and medical care plan development were reviewed and approved by the faculty preceptor. The faculty preceptor is aware and concurs with the plan as stated in the body of this note and will attest to such by his/her cosignature. ATTENDING NOTE I, Ulysses Bartlett, have independently examined this patient and performed my own physical exam, as well as reviewed the documentation and edited where necessary. I have discussed in detail with the resident / student the findings and plan of treatment as documented by the resident / student and edited their note. I agree with their findings and treatment plan and have edited their documentation. I will continue to follow the patient during this hospital stay. Time spend on discharge 24 minutes SUKUMAR ROUSSEAU MD Aug 27, 2019 10:52 ULYSSES BARTLETT MD Aug 27, 2019 15:31
--- NOTE | 2019-08-29 16:51 | CR ---
DATE OF CONSULTATION: 08/26/2019 CHIEF COMPLAINT: Epistaxis. HISTORY OF PRESENT ILLNESS: This 78-year-old woman presented to the [facility] ED due to acute onset of epistaxis to the left side of her nose. In the ED she received rhino rocket which controlled the bleeding. I was consulted due to concern of possible ongoing bleeding. Patient is not on an anticoagulant. She denies recent history of facial trauma or digital trauma to the nose. Patient did develop episodes of hypoxia during the visit to the emergency department. The plan is to have the patient admitted under the hospitalist group for observation. At this time the patient denies intractable headache, visual disturbance or acute respiratory distress or chest pains. MEDICATIONS: Amlodipine, aspirin 81 mg, atorvastatin, vitamin B3, Colace, Nexium, Milk of Magnesia, mineral oil, amitriptyline, MiraLAX, spironolactone, propylene glycol, Senokot, sulfa and influenza vaccine. PAST MEDICAL HISTORY: Ischemic and hemorrhagic cerebral vascular accident first occurring in 1992 with a subsequent event in 2010. Hypertension, proctitis, constipation and depression. FAMILY HISTORY: Noncontributory. SOCIAL HISTORY: Nonsmoker, non-alcohol user. REVIEW OF SYSTEMS: Noncontributory. PHYSICAL EXAMINATION: The patient appears in no acute distress. Oxygen saturation 91% on room air. Ears normal pinna. Nose rhino rocket in situ in the left nasal cavity. No active bleeding. Right naris is free of fresh blood. Oral mucosa is clear without mucosal lesions or mass lesion. Posterior pharyngeal wall with no evidence of fresh blood. Neck no cervical lymphadenopathy. Trachea is midline. IMPRESSION: 78-year-old woman with left epistaxis under control using the rhino rocket. PLAN: At this time I would leave the rhino rocket in situ for at least 3 days. She is to start on the antibiotic for prophylaxis for sinusitis. She will be admitted by the hospitalist for observation due to her hypoxia episode. When she is discharged from the hospital she should be followed with the ENT office 3-4 days for packing removal.
== END 2019-08-27 12:30 ==
LOC: M ED 07:33 → EDBD 07:33 → M ED INP 07:34 → ENRESERV 12:00 → M MS5PR 13:10
PROVIDERS: ADMIT Internal Medicine; ATTEND Internal Medicine
DX: R04.0 Epistaxis (principal); J96.01 Acute respiratory failure with hypoxia; I10 Essential (primary) hypertension; E78.49 Other hyperlipidemia; K51.20 Ulcerative (chronic) proctitis without complications; K59.00 Constipation, unspecified; F32.9 Major depressive disorder, single episode, unspecified; Z79.899 Other long term (current) drug therapy; Z88.2 Allergy status to sulfonamides; Z88.7 Allergy status to serum and vaccine; Z86.73 Personal history of transient ischemic attack (TIA), and cerebral infarction without residual deficits
CPT/HCPCS: 36415; 71045; 80048; 85014; 85018; 85025; 85027; 85610; 85730; 86850; 86900; 86901; 93041; 94760; 96365; 99285; G0378

== ENCOUNTER → 2019-08-29 | Outpatient (REF) | payer MEDICARE, MEDICAID ==
[~2019-08-29] MED LIST changes: +ACET1TAB55 PO; +AMOX875T2 PO; +ASPI81TA26 PO; +ATOR40TA75 PO; +BISA10SU27 PR; +CALCCAP4 PO; +COLA100C5 PO; +ENEMENE PR; +MILKSUS3 PO; +MIRA3350 PO; +NEXI40CA PO; +SENN-23 PO; +SORB70SO36 PO; +TUMS500C PO; +VITA30004 PO; +[UNRECOGNIZED DRUG - CODE] OD
[2019-08-29 13:00] LABS: HEMATOCRIT 36.1 % (36.0-47.0); HEMOGLOBIN 10.2 g/dl (12.0-15.5); MEAN CORPUSCULAR HEMOGLOBIN 25.8 pg (27.0-33.0); MEAN CORPUSCULAR HGB CONC 28.3 g/dl (32.0-36.5); MEAN CORPUSCULAR VOLUME 91.4 fl (80.0-96.0); PLATELET COUNT, AUTOMATED 207 10^3/uL (150-450); RED BLOOD COUNT 3.95 10^6/uL (4.00-5.40); WHITE BLOOD COUNT 5.1 10^3/uL (4.0-10.0)
== END ==
PROVIDERS: ATTEND Internal Medicine
DX: I10 Essential (primary) hypertension (principal)

== ENCOUNTER → 2019-08-30 | Outpatient (REF) | payer MEDICARE, MEDICAID ==
--- NOTE | 2019-08-30 12:46 | REPPI ---
AP chest x-ray: Single view. History: Choking episode. Findings: The patient is rotated considerably to the right and the lungs are exposed at a low level of inspiration. The film is rather suboptimal as a result. There is some bowel loops under the right hemidiaphragm which appears to be elevated. The heart is difficult to assess but may be enlarged. No definite infiltrate is seen. There is no evidence of pneumothorax. Impression: Suboptimal radiograph. Electronically Signed by Saroj Traore MD 08/30/2019 12:38 P
== END ==
PROVIDERS: ATTEND Nurse Practitioner Adult Health
DX: R09.89 Other specified symptoms and signs involving the circulatory and respiratory systems (principal)

== ENCOUNTER → 2020-03-04 | Outpatient (REF) | payer MEDICARE, MEDICAID | PROVIDERS: ATTEND Internal Medicine | DX: E78.5 Hyperlipidemia, unspecified (principal); Z79.899 Other long term (current) drug therapy ==

== ENCOUNTER → 2020-06-27 | Outpatient (REF) | payer MEDICARE, MEDICAID ==
[~2020-06-27] MED LIST changes: -AMLO10TA5 PO; +AMLO1TAB25 PO; -ASPI81TA85 PO; +ASPI81TA86 PO
[2020-06-27 11:14] LABS: BLOOD UREA NITROGEN 13 MG/DL (7-18); CALCIUM LEVEL 10.9 MG/DL (8.8-10.2); CARBON DIOXIDE LEVEL 37 MEQ/L (21-32); CHLORIDE LEVEL 99 MEQ/L (98-107); CREATININE FOR GFR 0.73 MG/DL (0.55-1.30); GLOMERULAR FILTRATION RATE > 60.0 (>39); GLUCOSE, FASTING 93 MG/DL (70-100); POTASSIUM SERUM 3.6 MEQ/L (3.5-5.1); SODIUM LEVEL 140 MEQ/L (136-145)
== END ==
PROVIDERS: ATTEND Internal Medicine
DX: I10 Essential (primary) hypertension (principal)

== ENCOUNTER → 2020-07-03 | Outpatient (REF) | payer MEDICAID, MEDICARE | PROVIDERS: ATTEND Internal Medicine | DX: Z20.828 Contact with and (suspected) exposure to other viral communicable diseases (principal) ==

== ENCOUNTER → 2020-07-10 | Outpatient (REF) | payer MEDICARE, MEDICAID | LOC: EDSTATUS 08-16 14:19 | PROVIDERS: ATTEND Internal Medicine | DX: Z20.828 Contact with and (suspected) exposure to other viral communicable diseases (principal) ==

== ENCOUNTER → 2020-07-16 | Outpatient (REF) | payer MEDICARE, MEDICAID | PROVIDERS: ATTEND Internal Medicine | DX: Z20.828 Contact with and (suspected) exposure to other viral communicable diseases (principal) ==

== ENCOUNTER → 2020-08-03 | Outpatient (REF) | payer MEDICARE, MEDICAID | PROVIDERS: ATTEND Internal Medicine | DX: Z20.828 Contact with and (suspected) exposure to other viral communicable diseases (principal) ==

== ENCOUNTER → 2020-08-07 | Outpatient (REF) | payer MEDICAID, MEDICARE ==
[2020-08-07 12:38] LABS: INFLUENZA A AMPLIFICATION NEGATIVE (NEGATIVE); INFLUENZA B AMPLIFICATION NEGATIVE (NEGATIVE)
== END ==
PROVIDERS: ATTEND Internal Medicine
DX: Z20.828 Contact with and (suspected) exposure to other viral communicable diseases (principal)

== ENCOUNTER → 2020-08-09 | Outpatient (REF) ==
[2020-08-09 21:18] LABS: RSV AMPLIFICATION NEGATIVE (NEGATIVE)
== END ==
PROVIDERS: ATTEND Internal Medicine
DX: Z20.828 Contact with and (suspected) exposure to other viral communicable diseases (principal)

== ENCOUNTER → 2020-08-11 | Outpatient (REF) | payer MEDICARE, MEDICAID ==
[2020-08-11 14:38] LABS: RSV AMPLIFICATION NEGATIVE (NEGATIVE)
== END ==
PROVIDERS: ATTEND Internal Medicine
DX: Z20.828 Contact with and (suspected) exposure to other viral communicable diseases (principal)

== ENCOUNTER → 2020-08-13 | Outpatient (REF) | payer MEDICARE, MEDICAID | PROVIDERS: ATTEND Internal Medicine | DX: Z20.828 Contact with and (suspected) exposure to other viral communicable diseases (principal) ==

== ENCOUNTER → 2020-08-19 | Outpatient (REF) | payer MEDICAID, MEDICARE | PROVIDERS: ATTEND Internal Medicine | DX: Z20.828 Contact with and (suspected) exposure to other viral communicable diseases (principal) ==

== ENCOUNTER → 2020-08-25 | Outpatient (REF) | payer MEDICAID, MEDICARE | PROVIDERS: ATTEND Internal Medicine | DX: Z11.52 Encounter for screening for COVID-19 (principal) ==

== ENCOUNTER → 2020-08-29 | Outpatient (REF) | payer MEDICAID, MEDICARE | PROVIDERS: ATTEND Internal Medicine | DX: Z11.52 Encounter for screening for COVID-19 (principal) ==

== ENCOUNTER → 2020-09-04 | Outpatient (REF) | payer MEDICARE, MEDICAID ==
[2020-09-04 15:00] LABS: HEMATOCRIT 43.4 % (36.0-47.0); HEMOGLOBIN 11.8 g/dl (12.0-15.5); MEAN CORPUSCULAR HEMOGLOBIN 20.8 pg (27.0-33.0); MEAN CORPUSCULAR HGB CONC 27.2 g/dl (32.0-36.5); MEAN CORPUSCULAR VOLUME 76.4 fl (80.0-96.0); PLATELET COUNT, AUTOMATED 302 10^3/uL (150-450); RED BLOOD COUNT 5.68 10^6/uL (4.00-5.40); WHITE BLOOD COUNT 6.8 10^3/uL (4.0-10.0)
[2020-09-04 15:08] LABS: BLOOD UREA NITROGEN 9 MG/DL (7-18); CALCIUM LEVEL 9.5 MG/DL (8.8-10.2); CARBON DIOXIDE LEVEL 33 MEQ/L (21-32); CHLORIDE LEVEL 102 MEQ/L (98-107); CREATININE FOR GFR 0.68 MG/DL (0.55-1.30); GLOMERULAR FILTRATION RATE > 60.0 (>39); GLUCOSE, FASTING 71 MG/DL (70-100); POTASSIUM SERUM 4.1 MEQ/L (3.5-5.1); SODIUM LEVEL 140 MEQ/L (136-145)
[2020-09-04 15:20] LABS: TOTAL 25(OH) VITAMIN D 64.8 NG/ML (30.0-100.0)
== END ==
PROVIDERS: ATTEND Internal Medicine
DX: I10 Essential (primary) hypertension (principal); E87.6 Hypokalemia; Z79.899 Other long term (current) drug therapy

== ENCOUNTER → 2020-11-28 | Outpatient (REF) | payer MEDICARE, MEDICAID ==
[2020-11-28 21:55] LABS: RSV AMPLIFICATION NEGATIVE (NEGATIVE)
== END ==
PROVIDERS: ATTEND Internal Medicine
DX: Z11.52 Encounter for screening for COVID-19 (principal)

== ENCOUNTER → 2021-03-30 | Outpatient (REF) | payer MEDICARE, MEDICAID ==
[2021-03-30 12:33] LABS: HEMATOCRIT 36.7 % (36.0-47.0); HEMOGLOBIN 9.7 g/dl (12.0-15.5); MEAN CORPUSCULAR HGB CONC 26.4 g/dl (32.0-36.5); MEAN CORPUSCULAR VOLUME 75.8 fl (80.0-96.0); PLATELET COUNT, AUTOMATED 218 10^3/uL (150-450); RED BLOOD COUNT 4.84 10^6/uL (4.00-5.40); WHITE BLOOD COUNT 5.6 10^3/uL (4.0-10.0)
[2021-03-30 13:13] LABS: BLOOD UREA NITROGEN 12 MG/DL (7-18); CARBON DIOXIDE LEVEL 31 MEQ/L (21-32); CHLORIDE LEVEL 102 MEQ/L (98-107); CHOLESTEROL LEVEL 96 MG/DL (<200); CREATININE FOR GFR 0.53 MG/DL (0.55-1.30); GLOMERULAR FILTRATION RATE > 60.0 (>39); GLUCOSE, FASTING 89 MG/DL (70-100); HDL CHOLESTEROL 40 MG/DL (>40); NON-HDL-C 56 MG/DL; POTASSIUM SERUM 4.1 MEQ/L (3.5-5.1); SODIUM LEVEL 138 MEQ/L (136-145); TRIGLYCERIDES LEVEL 57 MG/DL (<150)
[2021-03-30 13:14] LABS: LDL CHOLESTEROL 45 MG/DL (<100)
== END ==
PROVIDERS: ATTEND Internal Medicine
DX: I25.10 Atherosclerotic heart disease of native coronary artery without angina pectoris (principal)

== ENCOUNTER → 2021-05-11 | Outpatient (REF) | payer MEDICARE, MEDICAID ==
[2021-05-11 12:19] LABS: HEMATOCRIT 38.2 % (36.0-47.0); MEAN CORPUSCULAR HEMOGLOBIN 19.6 pg (27.0-33.0); MEAN CORPUSCULAR HGB CONC 26.2 g/dl (32.0-36.5); PLATELET COUNT, AUTOMATED 210 10^3/uL (150-450); RED BLOOD COUNT 5.09 10^6/uL (4.00-5.40); WHITE BLOOD COUNT 5.9 10^3/uL (4.0-10.0)
[2021-05-11 12:55] LABS: ALBUMIN 3.7 GM/DL (3.2-5.2); ALT/SGPT 14 U/L (12-78); BILIRUBIN,TOTAL 0.5 MG/DL (0.2-1.0); BLOOD UREA NITROGEN 11 MG/DL (7-18); CALCIUM LEVEL 9.3 MG/DL (8.8-10.2); CARBON DIOXIDE LEVEL 33 MEQ/L (21-32); CHLORIDE LEVEL 101 MEQ/L (98-107); CREATININE FOR GFR 0.58 MG/DL (0.55-1.30); GLOMERULAR FILTRATION RATE > 60.0 (>39); GLUCOSE, FASTING 98 MG/DL (70-100); POTASSIUM SERUM 4.1 MEQ/L (3.5-5.1); SODIUM LEVEL 139 MEQ/L (136-145); TOTAL PROTEIN 7.6 GM/DL (6.4-8.2)
[2021-05-11 15:49] LABS: APPEARANCE, URINE CLEAR (CLEAR); BILIRUBIN, URINE AUTO NEGATIVE (NEGATIVE); BLOOD, URINE BLOOD NEGATIVE (NEGATIVE); COLOR, URINE YELLOW (YELLOW); GLUCOSE, URINE (UA) AUTO NEGATIVE (NEGATIVE); KETONE, URINE AUTO NEGATIVE (NEGATIVE); LEUKOCYTE ESTERASE, URINE AUTO NEGATIVE (NEGATIVE); NITRITE, URINE AUTO NEGATIVE (NEGATIVE); PROTEIN, URINE AUTO NEGATIVE (NEGATIVE); SPECIFIC GRAVITY URINE AUTO 1.011 (1.002-1.035)
[2021-05-11 15:50] LABS: BACTERIA, URINE AUTO NEGATIVE (NEGATIVE); RBC, URINE AUTO 1 /HPF (0-3); SQUAMOUS EPITHELIAL CELL UR AU 0 /HPF (0-6); WBC, URINE AUTO 0 /HPF (0-3)
== END ==
PROVIDERS: ATTEND Internal Medicine
DX: R44.3 Hallucinations, unspecified (principal); Z79.899 Other long term (current) drug therapy

== ENCOUNTER → 2021-07-08 | Outpatient (REF) | payer MEDICARE, MEDICAID ==
[2021-07-08 18:36] LABS: APPEARANCE, URINE CLEAR (CLEAR); BACTERIA, URINE AUTO NEGATIVE (NEGATIVE); BILIRUBIN, URINE AUTO NEGATIVE (NEGATIVE); BLOOD, URINE BLOOD 2+ (NEGATIVE); COLOR, URINE COLORLESS (YELLOW); GLUCOSE, URINE (UA) AUTO NEGATIVE (NEGATIVE); KETONE, URINE AUTO NEGATIVE (NEGATIVE); LEUKOCYTE ESTERASE, URINE AUTO 1+ (NEGATIVE); MUCUS, URINE SMALL (NEGATIVE); NITRITE, URINE AUTO NEGATIVE (NEGATIVE); PROTEIN, URINE AUTO NEGATIVE (NEGATIVE); RBC, URINE AUTO 1 /HPF (0-3); SPECIFIC GRAVITY URINE AUTO 1.002 (1.002-1.035); SQUAMOUS EPITHELIAL CELL UR AU 0 /HPF (0-6); UROBILINOGEN, URINE AUTO 0.2 mg/dL (0.0-2.0); WBC, URINE AUTO 4 /HPF (0-3)
== END ==
PROVIDERS: ATTEND Physician Assistant
DX: N39.0 Urinary tract infection, site not specified (principal)

== ENCOUNTER → 2021-07-14 | Outpatient (REF) | payer MEDICARE, MEDICAID ==
[2021-07-14 11:56] LABS: APPEARANCE, URINE TURBID (CLEAR); BACTERIA, URINE AUTO 2+ (NEGATIVE); BILIRUBIN, URINE AUTO NEGATIVE (NEGATIVE); BLOOD, URINE BLOOD 2+ (NEGATIVE); COLOR, URINE AMBER (YELLOW); GLUCOSE, URINE (UA) AUTO NEGATIVE (NEGATIVE); KETONE, URINE AUTO TRACE mg/dL (NEGATIVE); LEUKOCYTE ESTERASE, URINE AUTO 3+ (NEGATIVE); MUCUS, URINE SMALL (NEGATIVE); NITRITE, URINE AUTO POSITIVE (NEGATIVE); PROTEIN, URINE AUTO 3+ mg/dL (NEGATIVE); RBC, URINE AUTO TNTC /HPF (0-3); SPECIFIC GRAVITY URINE AUTO 1.017 (1.002-1.035); SQUAMOUS EPITHELIAL CELL UR AU 0 /HPF (0-6); UROBILINOGEN, URINE AUTO 0.2 mg/dL (0.0-2.0); WBC, URINE AUTO TNTC /HPF (0-3)
== END ==
PROVIDERS: ATTEND Nurse Practitioner Adult Health
DX: N39.0 Urinary tract infection, site not specified (principal)

== ENCOUNTER → 2021-07-15 | Outpatient (REF) | payer MEDICARE, MEDICAID | PROVIDERS: ATTEND Nurse Practitioner Adult Health | DX: N39.0 Urinary tract infection, site not specified (principal); Z53.9 Procedure and treatment not carried out, unspecified reason ==

== ENCOUNTER → 2021-08-24 | Outpatient (REF) | payer MEDICARE, MEDICAID ==
[2021-08-24 11:39] LABS: HEMATOCRIT 39.2 % (36.0-47.0); HEMOGLOBIN 10.2 g/dl (12.0-15.5); MEAN CORPUSCULAR HEMOGLOBIN 19.5 pg (27.0-33.0); MEAN CORPUSCULAR VOLUME 74.8 fl (80.0-96.0); PLATELET COUNT, AUTOMATED 243 10^3/uL (150-450); RED BLOOD COUNT 5.24 10^6/uL (4.00-5.40); WHITE BLOOD COUNT 5.8 10^3/uL (4.0-10.0)
[2021-08-24 12:15] LABS: BLOOD UREA NITROGEN 13 MG/DL (7-18); CALCIUM LEVEL 9.9 MG/DL (8.8-10.2); CARBON DIOXIDE LEVEL 34 MEQ/L (21-32); CHLORIDE LEVEL 103 MEQ/L (98-107); CREATININE FOR GFR 0.62 MG/DL (0.55-1.30); GLOMERULAR FILTRATION RATE > 60.0 (>39); GLUCOSE, FASTING 83 MG/DL (70-100); POTASSIUM SERUM 4.1 MEQ/L (3.5-5.1); SODIUM LEVEL 142 MEQ/L (136-145)
== END ==
PROVIDERS: ATTEND Internal Medicine
DX: I10 Essential (primary) hypertension (principal); E55.9 Vitamin D deficiency, unspecified